=== PATIENT | female | born 1965 | race Two or more races ===

== ENCOUNTER 2016-10-28 09:29 | Inpatient (IN) | payer SELFPAY ==
[~2016-10-28] VITALS: Ht 149.9 cm; Wt 88.9 kg
[2016-10-28] VITALS (13 sets, daily range): BP systolic 107–150; BP diastolic 62–82
[2016-10-28] MEDS ORDERED: HEPARIN for IV BOLUS 10,000 UNIT/10 ML VIAL. IV ONE (09:45)
[2016-10-28] MEDS ORDERED: NITROGLYCERIN SUBLINGUAL 0.4 MG BOTTLE OF 25. SL PRN ×2 (09:45→11:15)
[2016-10-28] MEDS ORDERED: ASPIRIN CHEWABLE 81 MG TABLET. PO ONE (09:45)
[2016-10-28] MEDS ORDERED: ASPIRIN 325 MG TABLET ONE (09:55)
[2016-10-28 09:57] LABS: BASO % 0 % (0-3); EOS % 1 % (0-3); LYMPH # 2.6 x10^3/uL (1.0-4.8); LYMPH % 30 % (24-48); MEAN CORPUSCULAR HEMOGLOBIN 29 pg (25-35); MEAN CORPUSCULAR HGB CONC 34 g/dL (31-37); MEAN CORPUSCULAR VOLUME 86 fL (79-100); MONO % 5 % (0-9); NEUT % 63 % (31-73); PLATELET COUNT 260 x10^3/uL (140-400); RED BLOOD COUNT 5.47 x10^6/uL (3.50-5.40); RED CELL DISTRIBUTION WIDTH 13.8 % (11.5-14.5); WHITE BLOOD COUNT 8.5 x10^3/uL (4.0-11.0)
[2016-10-28] MEDS ORDERED: MIDAZOLAM HCL/PF 2 MG/2 ML VIAL. ONE (10:03)
[2016-10-28] MEDS ORDERED: ONDANSETRON PF 4 MG/2 ML VIAL. ONE ×2 (10:03→10:31)
[2016-10-28] MEDS ORDERED: FENTANYL PF 100 MCG/2 ML VIAL. ONE (10:03)
--- NOTE | 2016-10-28 10:07 | EKG ---
[facility] [address] [place] [address] Test Date: 2016-10-28 Test Time: 09:40:53 Pat Name: ITA BUSTAMANTE Department: Room: Gender: F Founder And Chief Executive Officer: : 1965 Requested By: KOLTON DICK Order Number: [id number] Reading MD: Isabella Jo Measurements Intervals [place] Rate: 84 P: 35 WA: 156 QRS: -13 QRSD: 86 T: -10 QT: 380 QTc: 452 Interpretive Statements SINUS RHYTHM LEFTWARD AXIS ST & T ABNORMALITY, CONSIDER INFERIOR ISCHEMIA OR LEFT VENTRICULAR STRAIN ABNORMAL ECG RI6.01 No previous ECG available for comparison Electronically Signed On 11-02-2016 12:54:28 CDT by Isabella Jo
--- NOTE | 2016-10-28 10:10 | PHYS DOC ---
Past Medical History Past Medical History: Anxiety Past Surgical History: No Surgical History Alcohol Use: None Drug Use: None Adult General Chief Complaint Chief Complaint: chest pressure HPI HPI 51-year-old female presenting to the emergency department today with chest pain this started around 8:00 this morning. She describes it as a pressure sensation that is nonradiating associated with nausea and lightheadedness feeling weak. She reports a history of having a cardiac catheterization at [facility] reportedly "normal". She denies any stents history. He does have a history of anxiety. She denies unilateral leg swelling hemoptysis personal or family history of blood clotting disorders or recent immobilization. Review of systems is negative for abdominal pain fevers chills. Positive for nausea and generalized weakness. All other review of systems is negative unless otherwise noted in history of present illness. Review of Systems Review of Systems SEE ABOVE. Current Medications Current Medications Current Medications Medications (Trade) Dose Ordered Sig/Timoteo Start Time Stop Time Status Last Admin Dose Admin Albuterol Sulfate (Ventolin Neb Soln) 10 mg 1X ONCE 10/28/16 10:15 10/28/16 10:16 UNV Aspirin ([place] Aspirin) 325 mg STK-MED ONCE 10/28/16 09:55 10/28/16 09:56 DC Aspirin (Children'S Aspirin) 324 mg 1X ONCE 10/28/16 09:45 10/28/16 09:46 UNV Calcium Gluconate (Calcium Gluconate) 1,000 mg 1X ONCE 10/28/16 10:15 10/28/16 10:16 UNV Dextrose (Dextrose 50%-Water Syringe) 25 gm 1X ONCE 10/28/16 10:15 10/28/16 10:16 UNV Fentanyl Citrate 100 mcg 100 mcg STK-MED ONCE 10/28/16 10:03 10/28/16 10:04 DC Heparin Sodium (Porcine) (Heparin Sodium) 4,000 unit 1X ONCE 10/28/16 09:45 10/28/16 09:46 UNV Heparin Sodium/ Sodium Chloride 500 ml @ As Directed STK-MED ONCE 10/28/16 10:10 10/28/16 10:11 DC Insulin Human Regular (Novolin R Vial) 10 unit 1X ONCE 10/28/16 10:15 10/28/16 10:16 UNV Midazolam HCl (Versed) 2 mg STK-MED ONCE 10/28/16 10:03 10/28/16 10:04 DC Nitroglycerin (Nitrostat) 0.4 mg PRN Q5MIN PRN 10/28/16 09:45 10/29/16 09:44 UNV Ondansetron HCl (Zofran) 4 mg STK-MED ONCE 10/28/16 10:03 10/28/16 10:04 DC Sodium Bicarbonate 50 meq 1X ONCE 10/28/16 10:15 10/28/16 10:16 UNV Physical Exam Physical Exam Constitutional: Well developed, well nourished, patient appears to be in moderate discomfort. HENT: Normocephalic, atraumatic, bilateral external ears normal, oropharynx moist, no oral exudates, nose normal. [] Eyes: PERRLA, EOMI, conjunctiva normal, no discharge. [] Neck: Normal range of motion, no tenderness, supple, no stridor. Cardiovascular:Heart rate regular rhythm, no murmur [] Lungs & Thorax: Bilateral breath sounds clear to auscultation Abdomen: Bowel sounds normal, soft, no tenderness, no masses, no pulsatile masses. [] Skin: Warm, dry, no erythema, no rash. [] Back: No tenderness, no CVA tenderness. Extremities: No tenderness, no cyanosis, no clubbing, ROM intact, no edema. [] Neurologic: Alert and oriented X 3, normal motor function, normal sensory function, no focal deficits noted. [] Psychologic: Affect normal, judgement normal, mood normal. [] Current Patient Data Vital Signs Vital Signs Date Time Temp Pulse Resp B/P Pulse Ox O2 Delivery O2 Flow Rate FiO2 10/28/16 09:49 97.6 89 21 195/105 97 Room Air 97.6 Lab Values Laboratory Tests Test 10/28/16 09:45 White Blood Count 8.5x10^3/uL (4.0-11.0) Red Blood Count 5.47x10^6/uL (3.50-5.40) H Hemoglobin 16.0g/dL (12.0-15.5) H Hematocrit 47.0% (36.0-47.0) Mean Corpuscular Volume 86fL (79-100) Mean Corpuscular Hemoglobin 29pg (25-35) Mean Corpuscular Hemoglobin Concent 34g/dL (31-37) Red Cell Distribution Width 13.8% (11.5-14.5) Platelet Count 260x10^3/uL (140-400) Neutrophils (%) (Auto) 63% (31-73) Lymphocytes (%) (Auto) 30% (24-48) Monocytes (%) (Auto) 5% (0-9) Eosinophils (%) (Auto) 1% (0-3) Basophils (%) (Auto) 0% (0-3) Neutrophils # (Auto) 5.4x10^3uL (1.8-7.7) Lymphocytes # (Auto) 2.6x10^3/uL (1.0-4.8) Monocytes # (Auto) 0.4x10^3/uL (0.0-1.1) Eosinophils # (Auto) 0.1x10^3/uL (0.0-0.7) Basophils # (Auto) 0.0x10^3/uL (0.0-0.2) Sodium Level 138mmol/L (136-145) Potassium Level 3.9mmol/L (3.5-5.1) Chloride Level 101mmol/L (98-107) Carbon Dioxide Level 24mmol/L (21-32) Anion Gap 13 (6-14) Blood Urea Nitrogen 8mg/dL (7-20) Creatinine 0.7mg/dL (0.6-1.0) Estimated GFR (Cockcroft-Gault) 88.6 Glucose Level 143mg/dL (70-99) H Calcium Level 9.1mg/dL (8.5-10.1) POC Troponin I 0.04ng/ml (<0.08) Laboratory Tests 10/28/16 09:45 Laboratory Tests 10/28/16 09:45 EKG EKG [] EKG shows a sinus rhythm with a regular rate. [place] is mildly leftward. ST segments show ST elevation in lead [address] depression in lead 3 and aVF. This meet STEMI criteria and a code STEMI was called at 0941. Radiology/Procedures Radiology/Procedures [] Course & Med Decision Making Course & Med Decision Making Pertinent Labs and Imaging studies reviewed. (See chart for details) [] 51-year-old female presenting to the emergency department today with chest pressure that started around 8:00 this morning. Initial EKG along with clinical presentation meet STEMI criteria. Code STEMI called at 0941. I discussed the case with Dr. Carreno who agreed and proceeded with cardiac catheterization. Aspirin and heparin given in the emergency department. blood work obtained. After the patient went for cardiac catheterization, I received the patient's i- STAT chemistry panel which showed hyperkalemia at greater than 9. We called the cardiac catheterization lab and informed Dr. Carreno. I ordered hyperkalemia treatment from the emergency department and discussed the case with Dr. You who accepted the patient for admission. Dragon Disclaimer Dragon Disclaimer This electronic medical record was generated, in whole or in part, using a voice recognition dictation system. Departure Departure Impression: Primary Impression: STEMI (ST elevation myocardial infarction) Additional Impressions: Chest pressure Hyperkalemia Disposition: ADMITTED INPATIENT Admitting Physician: Salima You Condition: CRITICAL Problem Qualifiers Primary Impression: STEMI (ST elevation myocardial infarction) Involved coronary artery: unspecified coronary artery Qualified Code: I21.3 - ST elevation (STEMI) myocardial infarction of unspecified site KOLTON DICK MD Oct 28, 2016 10:10
[2016-10-28 10:14] LABS: CALCIUM 9.1 mg/dL (8.5-10.1); CREATININE 0.7 mg/dL (0.6-1.0); GFR 88.6; POTASSIUM 3.9 mmol/L (3.5-5.1)
[2016-10-28] MEDS ORDERED: DEXTROSE 50% 25 GM / 50ML DISP.SYRIN. IV ONE (10:15)
[2016-10-28] MEDS ORDERED: CALCIUM GLUCONATE 1,000 MG/10 ML VIAL. IVP ONE (10:15)
[2016-10-28] MEDS ORDERED: INSULIN REGULAR 100 UNIT/ML 10ML VIAL. IV ONE (10:15)
[2016-10-28] MEDS ORDERED: SODIUM BICARB ADULT 8.4% 50 MEQ/50 ML DISP.SYRIN. IV ONE (10:15)
[2016-10-28] MEDS ORDERED: ALBUTEROL SULFATE 2.5 MG/3 ML NEBU. CONT NEB ONE (10:15)
--- NOTE | 2016-10-28 10:19 | ACF ---
Admission Forms Criteria MYOCARDIAL INFARCTION Clinical Indications for Admission to Inpatient Care (Place 'X' for any and all applicable criteria): Admission is indicated for 1 or more of the following (1)(2)(3)(4): [X]I. Acute VT [ ]II. Contraindications and/or Inappropriate clinical situations for Observational Care in patients with Myocardial Infarction, when ANY ONE of the following is required: [ ]a) Patient with High risk of cardiac embolism (e.g, patients with previous cardiac embolism, LVEF < 40%, age >75 and patients with prosthetic valve) 18 [ ]b) Patient with Moderate risk including DM patient, CAD and patient aged 65-75 18 [ ]c) Patient with any change in cardiac biomarker especially troponin should be managed as high risk in an inpatient setting 19 [ ]d) Physician judgement irrespective of ECG and other diagnostic findings 20 [ ]III.General contraindications and/or Inappropriate clinical situations for Observational Care in patients with Myocardial Infarction, when ANY ONE of the following is required: [ ]a) Prediction of prolongation of LOS based on ANY ONE of the following may be considered as a contraindication for observational care 2, 3, 4, 5, 6, 7, 8, 9, 10, 11 [ ]i) Age > 65 yrs. [ ]ii) Patient arriving by ambulance [ ]iii) Patient with high acuity [ ]iv) Patient requiring vital sign monitoring [ ]v) Patient on IV medication [ ]b) Systolic blood pressures greater than or equal to 180mmHg 3,12 [ ]c) Patient with altered mental status including delirium and other alteration of consciousness, (3) [ ]d) Patient whose discharge disposition will be to a alf home or rehabilitation home should not be managed in Emergency Department Observation Unit. CMS rule requires 3 days hospital stay before such placement. 3,13 [ ]e) Patient with failure to thrive due to broad array of etiologies 3 ,16,17 [ ]f) Inability to ambulate 3,14 Extended stay beyond goal length of stay may be needed for (1)(18)(20)(24)(25): [ ]a) Hemodynamic instability, persisting symptoms after intensive medical management, or recurring severe, prolonged symptoms [ ]b) Intravascular procedural complications such as acute vessel closure, stent thrombosis, stent malposition, or vessel dissection (26)(27)(28) [ ]c) Extravascular procedural complications such as retroperitoneal hematoma , pericardial effusion, or cardiac tamponade [ ]d) Entry site complications causing bleeding, hematoma or distal ischemia and requiring ongoing monitoring, surgical repair or surgical thrombectomy. Dangerous arrhythmia [ ]e) Complicated percutaneous coronary intervention (e.g., unsuccessful percutaneous coronary intervention or percutaneous coronary intervention of non- apache vessel) [ ]f) Urgent or emergent surgery for complications of VT (e.g., ventricular rupture, valvular insufficiency) [ ]g) Surgical revascularization via coronary artery bypass graft [ ]h) Heart failure (e.g., pulmonary edema) [ ]i) Unstable pulmonary comorbidities, including COPD or pneumonia (31) [ ]j) Acute renal failure The original [employer] content created by [employer] has been revised. The portions of the content which have been revised are identified through the use of italic text or in bold, and [facility] has neither reviewed nor approved the modified material. All other unmodified content is copyright [facility] Please see references footnoted in the original [facility] [facility] edition 2016 Admission Criteria Met?: Yes BUSTER EASLEY Oct 28, 2016 10:19
[2016-10-28 10:33] LABS: CALCIUM 8.7 mg/dL (8.5-10.1); CREATININE 0.7 mg/dL (0.6-1.0); GFR 88.6; POTASSIUM 3.2 mmol/L (3.5-5.1)
[2016-10-28] MEDS ORDERED: NITROGLYCERIN PREMIX 250 ML IV ONE (10:37)
[2016-10-28] MEDS ORDERED: IOHEXOL 300 MG/ML 100ML VIAL. IART ONE (10:45)
[2016-10-28] MEDS ORDERED: LIDOCAINE 2% 20 ML VIAL. IJ ONE (10:45)
[2016-10-28] MEDS ORDERED: ONDANSETRON PF 4 MG/2 ML VIAL. IV ONE (11:00)
--- NOTE | 2016-10-28 11:06 | PDOC4 ---
Operative Note Operative Note Brief cath note. 51 year old female with acute onset of chest pain this morning. EKG with mild ST and T wave changes not diagnostic of a STEMI but concerning in the setting of severe chest pain. Heart cath recommended. Risks and benefits discussed and patient agreed to cath. Recheck showed a normal K level. LV 172/24, Ao. 170/90. No significant CAD. Normal LV gram. Normal Ao root and arch. Continue medical treatment and work up for non cardiac causes of her pain. Discussed with the patient and her family. Full report to follow. BAILEE DEL VALLE MD Oct 28, 2016 11:06
[2016-10-28] MEDS ORDERED: 0.9 % SODIUM CHLORIDE 10 ML DISP.SYRIN. IV PRN (11:15)
[2016-10-28] MEDS ORDERED: ONDANSETRON PF 4 MG/2 ML VIAL. IV PRN (11:45)
[2016-10-28] MEDS ORDERED: PHEN37.53 PO (11:50)
[2016-10-28] MEDS ORDERED: INDO50CA PO (11:50)
[2016-10-28] MEDS ORDERED: IOHEXOL 300 MG/ML 100ML VIAL. ONE (11:57)
[2016-10-28] MEDS ORDERED: LIDOCAINE 2% 20 ML VIAL. ONE (11:57)
[2016-10-28] MEDS ORDERED: ACETAMINOPHEN 325 MG TABLET. PO PRN (13:00)
[2016-10-28] MEDS ORDERED: ACETAMINOPHEN 500 MG TABLET PO ONE (13:00)
[2016-10-28] MEDS: IV NORMAL SALINE 1000ML BAG 1,000 ML IV SCH (13:11)
[2016-10-28] MEDS ORDERED: ACETAMINOPHEN 500 MG TABLET PO PRN (14:15)
--- NOTE | 2016-10-28 15:08 | PDOC1 ---
History and Physical Date of Admission Date of Admission DATE: 10/28/16 TIME: 15:03 Identification/Chief Complaint Chief Complaint chest pain Problems: Source Source: Caregiver, Chart review, Patient History of Present Illness History of Present Illness 51 y.o F with no real significant past medical, admitted for CP. She was standing at work, felt dizzy, lightheaded, diaphoretic and fell on the floor but did not LOC. NO SZ like activity, no incontinence. EMS called, STEMI was called at ER, underwent cardiac cath which was clean Never had similar sxs before nor prior cardiac caths NOn smoker, occasional drinker DOes not do drugs FAm hx essentially non significant Admits to some anxiety, has xanax at home but claims she was not anxious when this all happened She would like to go home yareli R groin site inspected - no hematoma Past Medical History Psych: Anxiety Past Surgical History Past Surgical History: No pertinent history Family History Family History: No Significant Social History Smoke: No ALCOHOL: occassional Drugs: None Current Problem List Problem List Problems Medical Problems: (1) Chest pressure Status: Acute (2) Hyperkalemia Status: Acute (3) Hyperkalemia Status: Acute (4) STEMI (ST elevation myocardial infarction) Status: Acute (5) STEMI (ST elevation myocardial infarction) Status: Acute Problems: Current Medications Current Medications Current Medications Aspirin (Children'S Aspirin) 324 mg 1X ONCE PO ; Start 10/28/16 at 09:45; Stop 10/28/16 at 10:32; Status DC Nitroglycerin (Nitrostat) 0.4 mg PRN Q5MIN PRN SL CP RATING > 1/10; Start 10/28 at 09:45; Stop 10/29/16 at 09:44 Heparin Sodium (Porcine) (Heparin Sodium) 4,000 unit 1X ONCE IV ; Start at 09:45; Stop 10/28/16 at 10:33; Status DC Aspirin ([place] Aspirin) 325 mg STK-MED ONCE .ROUTE ; Start 10/28/16 at 09:55; Stop 10/28/16 at 09:56; Status DC Ondansetron HCl (Zofran) 4 mg STK-MED ONCE .ROUTE ; Start 10/28/16 at 10:03; Stop 10/28/16 at 10:04; Status DC Midazolam HCl (Versed) 2 mg STK-MED ONCE .ROUTE ; Start 10/28/16 at 10:03; Stop 10/28/16 at 10:04; Status DC Fentanyl Citrate 100 mcg 100 mcg STK-MED ONCE .ROUTE ; Start 10/28/16 at 10:03; Stop 10/28/16 at 10:04; Status DC Heparin Sodium/ Sodium Chloride 500 ml @ As Directed STK-MED ONCE .ROUTE ; Start 10/28/16 at 10:10; Stop 10/28/16 at 10:11; Status DC Sodium Bicarbonate 50 meq 1X ONCE IV ; Start 10/28/16 at 10:15; Stop 10/28/16 at 10:32; Status DC Calcium Gluconate (Calcium Gluconate) 1,000 mg 1X ONCE IVP ; Start 10/28/16 at 10:15; Stop 10/28/16 at 10:32; Status DC Albuterol Sulfate (Ventolin Neb Soln) 10 mg 1X ONCE CONT NEB ; Start 10/28/16 at 10:15; Stop 10/28/16 at 10:32; Status DC Insulin Human Regular (Novolin R Vial) 10 unit 1X ONCE IV ; Start 10/28/16 at 10:15; Stop 10/28/16 at 10:32; Status DC Dextrose (Dextrose 50%-Water Syringe) 25 gm 1X ONCE IV ; Start 10/28/16 at 10: 15; Stop 10/28/16 at 10:32; Status DC Ondansetron HCl (Zofran) 4 mg STK-MED ONCE .ROUTE ; Start 10/28/16 at 10:31; Stop 10/28/16 at 10:32; Status DC Heparin Sodium/ Sodium Chloride 1,000 unit 1X ONCE IART Last administered on t 10:58; Start 10/28/16 at 10:45; Stop 10/28/16 at 10:46; Status DC Heparin Sodium/ Sodium Chloride 1,000 unit 1X ONCE IART Last administered on t 10:58; Start 10/28/16 at 10:45; Stop 10/28/16 at 10:46; Status DC Iohexol (Omnipaque 300 Mg/ml) 100 ml 1X ONCE IART Last administered on t 10:56; Start 10/28/16 at 10:45; Stop 10/28/16 at 10:46; Status DC Lidocaine HCl 20 ml 20 ml 1X ONCE IJ Last administered on 10/28/16 10:58; Start 10/28/16 at 10:45; Stop 10/28/16 at 10:46; Status DC Nitroglycerin/ Dextrose (Nitroglycerin Drip) 250 ml @ As Directed STK-MED ONCE IV ; Start 10/28/16 at 10:37; Stop 10/28/16 at 10:38; Status DC Ondansetron HCl (Zofran) 4 mg 1X ONCE IV Last administered on 10/28/16 10:57 ; Start 10/28/16 at 11:00; Stop 10/28/16 at 11:01; Status DC Sodium Chloride 3 ml 3 ml QSHIFT PRN IV AFTER MEDS AND BLOOD DRAWS; Start 10/28 at 11:15 Sodium Chloride (Iv Sodium Chloride 0.9% 1000ml Bag) 1,000 ml @ 60 mls/hr [id number] IV Last administered on 10/28/16 13:11; Start 10/28/16 at 11:06 Nitroglycerin (Nitrostat) 0.4 mg PRN Q5MIN PRN SL CHEST PAIN; Start 10/28/16 at 11:15 Ondansetron HCl (Zofran) 4 mg PRN Q6HRS PRN IV NAUSEA/VOMITING Last administered on 10/28/16 12:58; Start 10/28/16 at 11:45 Lidocaine HCl 20 ml 20 ml STK-MED ONCE .ROUTE ; Start 10/28/16 at 11:57; Stop at 11:58; Status DC Heparin Sodium/ Sodium Chloride 1,000 ml @ As Directed STK-MED ONCE .ROUTE ; Start 10/28/16 at 11:57; Stop 10/28/16 at 11:58; Status DC Iohexol (Omnipaque 300 Mg/ml) 100 ml STK-MED ONCE .ROUTE ; Start 10/28/16 at 11: 57; Stop 10/28/16 at 11:58; Status DC Acetaminophen (Tylenol) 1,000 mg 1X ONCE PO Last administered on 10/28/16 13: 10; Start 10/28/16 at 13:00; Stop 10/28/16 at 13:02; Status DC Acetaminophen (Tylenol) 650 mg PRN Q6HRS PRN PO HEADACHE; Start 10/28/16 at 13: 00 Acetaminophen (Tylenol) 500 mg PRN Q6HRS PRN PO MILD PAIN / TEMP; Start at 14:15 Active Scripts Active Reported Phentermine Hcl 37.5 Mg Capsule 1 Cap PO [id number] Indomethacin 50 Mg Capsule 1 Cap PO TID Allergies Allergies: Coded Allergies: No Known Drug Allergies (Unverified , 10/28/16) ROS General: No: Appetite, Chills, Fatigue, Malaise, Night Sweats, Other PSYCHOLOGICAL ROS: No: Anxiety, Behavioral Disorder, Concentration difficultie , Decreased libido, Depression, Disorientation, Hallucinations, Hostility, Irritablity, Memory difficulties, Mood Swings, Obsessive thoughts, Other, Physical abuse, Sexual abuse, Sleep disturbances, Suicidal ideation Eyes: No Blurry vision, No Decreased vision, No Double vision, No Dry eyes, No Excessive tearing, No Eye Pain, No Itchy Eyes, No Loss of vision, No Other, No Photophobia, No Scotomata, No Uses contacts, No Uses glasses HEENT: No: Epistaxis, Heacaches, Hearing change, Nasal congestion, Nasal discharge, Oral lesions, Other, Sinus pain, Sneezing, Snoring, Sore Throat, Tinnitus, Vertigo, Visual Changes, Vocal changes ALLERGY AND IMMUNOLOGY: No: Hives, Insect Bite Sensitivity, Itchy/Watery Eyes, Nasal Congestion, Other, Post Nasal Drip, Seasonal Allergies Hematological and Lymphatic: No: Bleeding Problems, Blood Clots, Blood Transfusions, Brusing, Night Sweats, Other, Pallor, Swollen Lymph Nodes ENDOCRINE: No: Breast Changes, Galactorrhea, Hair Pattern Changes, Hot Flashes , Malaise/lethargy, Mood Swings, Other, Palpitations, Polydipsia/polyuria, Skin Changes, Temperature Intolerance, Unexpected Weight Changes Breast: No New/Changing Breast Lumps, No Nipple changes, No Nipple discharge, No Other Respiratory: No: Cough, Hemoptysis, Orthopnea, Other, Pleuritic Pain, SOB with excertion, Shortness of breath, Sputum Changes, Stridor, Tachypnea, Wheezing Cardiovascular: No Chest Pain, No Edema, No Lt Headedness, No Orthopnea, No Other, No Palpitations, No Paroxysmal Noc. Dyspnea Gastrointestinal: No Abdominal Pain, No Constipation, No Diarrhea, No Hematochezia, No Melena, No Nausea, No Other, No Vomiting Genitourinary: No , No , No , No , No , No , No , No Discharge, No Dysuria, No Flank Pain, No Frequency, No Hematuria, No Incontinence, No Other, No Pain, No Retention, No Urgency Musculoskeletal: No Gait Disturbance, No Joint Pain, No Joint Stiffness, No Joint Swelling, No Muscle Pain, No Muscular Weakness, No Other, No Pain In:, No Swelling In: Neurological: No Behavorial Changes, No Bowel/Bladder ControlChng, No Confusion , No Dizziness, No Gait Disturbance, No Headaches, No Impaired Coord/balance, No Memory Loss, No Numbness/Tingling, No Other, No Seizures, No Speech Problems , No Tremors, No Visual Changes, No Weakness Skin: No Acne, No Dry Skin, No Eczema, No Hair Changes, No Lumps, No Mole Changes, No Mottling, No Nail Changes, No Other, No Pruritus, No Rash, No Skin Lesion Changes Physical Exam General: Alert, Oriented X3, Cooperative, No acute distress HEENT: Atraumatic, PERRLA, EOMI Lungs: Clear to auscultation, Normal air movement Heart: S1S2, RRR, no rubs, no gallops Cardiovascular: S1, S2 Breasts: Normal Abdomen: Normal bowel sounds, Soft, No tenderness, No hepatosplenomegaly, No masses Extremities: No clubbing, No cyanosis, No edema, Normal pulses, No tenderness/ swelling Skin: No rashes, No breakdown, No significant lesion Neuro: Normal gait, Normal speech, Strength at 5/5 X4 ext, Normal tone, Sensation intact, Cranial nerves 3-12 NL, Reflexes 2+ Psych/Mental Status: Mental status NL, Mood NL Vitals Vitals Vital Signs Date Time Temp Pulse Resp B/P Pulse Ox O2 Delivery O2 Flow Rate FiO2 10/28/16 14:39 78 18 107/71 96 Room Air 10/28/16 11:30 97.6 97.6 Labs Labs Laboratory Tests Test 10/28/16 09:45 10/28/16 10:22 White Blood Count 8.5x10^3/uL (4.0-11.0) Red Blood Count 5.47x10^6/uL (3.50-5.40) Hemoglobin 16.0g/dL (12.0-15.5) Hematocrit 47.0% (36.0-47.0) Mean Corpuscular Volume 86fL (79-100) Mean Corpuscular Hemoglobin 29pg (25-35) Mean Corpuscular Hemoglobin Concent 34g/dL (31-37) Red Cell Distribution Width 13.8% (11.5-14.5) Platelet Count 260x10^3/uL (140-400) Neutrophils (%) (Auto) 63% (31-73) Lymphocytes (%) (Auto) 30% (24-48) Monocytes (%) (Auto) 5% (0-9) Eosinophils (%) (Auto) 1% (0-3) Basophils (%) (Auto) 0% (0-3) Neutrophils # (Auto) 5.4x10^3uL (1.8-7.7) Lymphocytes # (Auto) 2.6x10^3/uL (1.0-4.8) Monocytes # (Auto) 0.4x10^3/uL (0.0-1.1) Eosinophils # (Auto) 0.1x10^3/uL (0.0-0.7) Basophils # (Auto) 0.0x10^3/uL (0.0-0.2) Sodium Level 138mmol/L (136-145) 139mmol/L (136-145) Potassium Level 3.9mmol/L (3.5-5.1) 3.2mmol/L (3.5-5.1) Chloride Level 101mmol/L (98-107) 101mmol/L (98-107) Carbon Dioxide Level 24mmol/L (21-32) 26mmol/L (21-32) Anion Gap 13 (6-14) 12 (6-14) Blood Urea Nitrogen 8mg/dL (7-20) 8mg/dL (7-20) Creatinine 0.7mg/dL (0.6-1.0) 0.7mg/dL (0.6-1.0) Estimated GFR (Cockcroft-Gault) 88.6 88.6 Glucose Level 143mg/dL (70-99) 133mg/dL (70-99) Calcium Level 9.1mg/dL (8.5-10.1) 8.7mg/dL (8.5-10.1) Bedside Troponin I 0.04ng/ml (<0.08) Troponin I Quantitative < 0.017ng/mL (0.000-0.055) Laboratory Tests Test 10/28/16 09:45 10/28/16 10:22 White Blood Count 8.5x10^3/uL (4.0-11.0) Red Blood Count 5.47x10^6/uL (3.50-5.40) Hemoglobin 16.0g/dL (12.0-15.5) Hematocrit 47.0% (36.0-47.0) Mean Corpuscular Volume 86fL (79-100) Mean Corpuscular Hemoglobin 29pg (25-35) Mean Corpuscular Hemoglobin Concent 34g/dL (31-37) Red Cell Distribution Width 13.8% (11.5-14.5) Platelet Count 260x10^3/uL (140-400) Neutrophils (%) (Auto) 63% (31-73) Lymphocytes (%) (Auto) 30% (24-48) Monocytes (%) (Auto) 5% (0-9) Eosinophils (%) (Auto) 1% (0-3) Basophils (%) (Auto) 0% (0-3) Neutrophils # (Auto) 5.4x10^3uL (1.8-7.7) Lymphocytes # (Auto) 2.6x10^3/uL (1.0-4.8) Monocytes # (Auto) 0.4x10^3/uL (0.0-1.1) Eosinophils # (Auto) 0.1x10^3/uL (0.0-0.7) Basophils # (Auto) 0.0x10^3/uL (0.0-0.2) Sodium Level 138mmol/L (136-145) 139mmol/L (136-145) Potassium Level 3.9mmol/L (3.5-5.1) 3.2mmol/L (3.5-5.1) Chloride Level 101mmol/L (98-107) 101mmol/L (98-107) Carbon Dioxide Level 24mmol/L (21-32) 26mmol/L (21-32) Anion Gap 13 (6-14) 12 (6-14) Blood Urea Nitrogen 8mg/dL (7-20) 8mg/dL (7-20) Creatinine 0.7mg/dL (0.6-1.0) 0.7mg/dL (0.6-1.0) Estimated GFR (Cockcroft-Gault) 88.6 88.6 Glucose Level 143mg/dL (70-99) 133mg/dL (70-99) Calcium Level 9.1mg/dL (8.5-10.1) 8.7mg/dL (8.5-10.1) Bedside Troponin I 0.04ng/ml (<0.08) Troponin I Quantitative < 0.017ng/mL (0.000-0.055) VTE Prophylaxis Ordered VTE Prophylaxis Devices: Yes VTE Pharmacological Prophylaxi: Yes Assessment/Plan Assessment/Plan 1. CHest pain, non cardiac - clean cath - 2. Possible anxiety 3. Obesity PLAN: Admit OBS resume xanax Awaiting home meds HOme TAYE Figueroa MD Oct 28, 2016 15:08
[2016-10-28] MEDS ORDERED: ALPRAZOLAM 0.25 MG TABLET. PO PRN (15:15)
--- NOTE | 2016-10-28 15:17 | CARD ---
APPROVED REPORT Procedures. Left heart catheterization. Selective coronary angiogram Left ventriculogram. Aortic root injection. The patient is a 51-year-old female who was admitted through the emergency room with acute onset of s evere chest pain. Patient's EKG showed mild ST segment changes in the inferior and lateral leads. Alt elda she did not meet the criteria for ST elevated myocardial infarction, in the setting of her abn ormal EKG and severe chest pain a cardiac catheterization was recommended. Risks and benefits were di scussed with the patient. She has consented to a catheterization and possible intervention. After informed consent was obtained the patient was brought to the heart catheterization lab. The are a of the right femoral artery was per the usual manner with Betadine, sterile draping and local anest hetic. An 18-gauge needle was used to enter the right femoral artery, a wire placed and a 6 Greek sh eath placed over the wire. A 6 Greek JL4 catheter was advanced the ascending aorta. It was then used to engage the left coronary system and sequential injections in various views were obtained. A 6 Ulisses nch Graham right catheter was advanced the ascending aorta. It was used to engage the right coronar y artery and sequential injections in various views were obtained. A pigtail catheter was advanced to the ascending aorta. It was then passed to the left ventricle. A 30 VASQUEZ left ventriculogram was per formed. Pullback pressures were measured. A 30 PANDA aortic root injection was performed. The catheter was removed from the patient. Injection of the sheath showed normal placement. The sheath was remove d and sealed with an Angio-Seal product. Findings. Hemodynamics. Left ventricular pressure 174/24, aortic root pressure of 170/90. Coronaries. Left main. The left main was a normal-sized vessel with no lesions. Left anterior descending. The LAD had a normal appearance of its proximal vessel. It began to taper i n its mid vessel and the distal vessel was a very small vessel. There are no isolated lesions present . Left circumflex. The left circumflex is a moderate size vessel. It had no lesions. Right coronary artery. The right coronary was a moderate size vessel. It had no lesions. Left ventriculogram. The left ventricle had an area of mild hypokinesis in the anterior wall. Ejection fraction was estima dionne at 46%. Aortic root. The aortic root appeared normal without enlargement. <Conclusion> Very small mid to distal LAD with no isolated lesions present. Possible component of vasospasm. Mild anterior wall hypokinesis with an ejection fraction estimated at 46%. No angiographic disease in the right coronary artery or left circumflex system.
--- NOTE | 2016-10-28 16:22 | PDOC2 ---
NEUROLOGY CONSULT Date of Admission Date of Admission DATE: 10/28/16 TIME: 16:20 Reason for Consult Reason for Consult: Visual disturbances Referring Physician Referring Physician: Dr. Gill PCP: Dr. Gonzalez Source Source: Chart review, Patient History of Present Illness History of Present Illness The patient is a 51-year-old right-handed female limited with chest pain and syncope who has had some visual disturbances this afternoon following cardiac catheterization. She routinely gets this every 3-4 months usually associate with a migraine headache, but not always. These are no different from her usual symptoms, she says. In general she takes Excedrin when she gets the headache and that takes care of it. There is no history of stroke, seizure, or head injury. Past Medical History Cardiovascular: HTN CENTRAL NERVOUS SYSTEM: Migraine GI: GERD Psych: Anxiety, Depression Musculoskeletal: Osteoarthritis Past Surgical History Past Surgical History: , Tonsillectomy, Hysterectomy Family History Family History: CAD Social History Social History No tobacco or alcohol Current Medications Current Medications Current Medications Aspirin (Children'S Aspirin) 324 mg 1X ONCE PO ; Start 10/28/16 at 09:45; Stop 10/28/16 at 10:32; Status DC Nitroglycerin (Nitrostat) 0.4 mg PRN Q5MIN PRN SL CP RATING > 1/10; Start 10/28 at 09:45; Stop 10/29/16 at 09:44 Heparin Sodium (Porcine) (Heparin Sodium) 4,000 unit 1X ONCE IV ; Start at 09:45; Stop 10/28/16 at 10:33; Status DC Aspirin ([place] Aspirin) 325 mg STK-MED ONCE .ROUTE ; Start 10/28/16 at 09:55; Stop 10/28/16 at 09:56; Status DC Ondansetron HCl (Zofran) 4 mg STK-MED ONCE .ROUTE ; Start 10/28/16 at 10:03; Stop 10/28/16 at 10:04; Status DC Midazolam HCl (Versed) 2 mg STK-MED ONCE .ROUTE ; Start 10/28/16 at 10:03; Stop 10/28/16 at 10:04; Status DC Fentanyl Citrate 100 mcg 100 mcg STK-MED ONCE .ROUTE ; Start 10/28/16 at 10:03; Stop 10/28/16 at 10:04; Status DC Heparin Sodium/ Sodium Chloride 500 ml @ As Directed STK-MED ONCE .ROUTE ; Start 10/28/16 at 10:10; Stop 10/28/16 at 10:11; Status DC Sodium Bicarbonate 50 meq 1X ONCE IV ; Start 10/28/16 at 10:15; Stop 10/28/16 at 10:32; Status DC Calcium Gluconate (Calcium Gluconate) 1,000 mg 1X ONCE IVP ; Start 10/28/16 at 10:15; Stop 10/28/16 at 10:32; Status DC Albuterol Sulfate (Ventolin Neb Soln) 10 mg 1X ONCE CONT NEB ; Start 10/28/16 at 10:15; Stop 10/28/16 at 10:32; Status DC Insulin Human Regular (Novolin R Vial) 10 unit 1X ONCE IV ; Start 10/28/16 at 10:15; Stop 10/28/16 at 10:32; Status DC Dextrose (Dextrose 50%-Water Syringe) 25 gm 1X ONCE IV ; Start 10/28/16 at 10: 15; Stop 10/28/16 at 10:32; Status DC Ondansetron HCl (Zofran) 4 mg STK-MED ONCE .ROUTE ; Start 10/28/16 at 10:31; Stop 10/28/16 at 10:32; Status DC Heparin Sodium/ Sodium Chloride 1,000 unit 1X ONCE IART Last administered on 10:58; Start 10/28/16 at 10:45; Stop 10/28/16 at 10:46; Status DC Heparin Sodium/ Sodium Chloride 1,000 unit 1X ONCE IART Last administered on 10:58; Start 10/28/16 at 10:45; Stop 10/28/16 at 10:46; Status DC Iohexol (Omnipaque 300 Mg/ml) 100 ml 1X ONCE IART Last administered on 10:56; Start 10/28/16 at 10:45; Stop 10/28/16 at 10:46; Status DC Lidocaine HCl 20 ml 20 ml 1X ONCE IJ Last administered on 10/28/16 10:58; Start 10/28/16 at 10:45; Stop 10/28/16 at 10:46; Status DC Nitroglycerin/ Dextrose (Nitroglycerin Drip) 250 ml @ As Directed STK-MED ONCE IV ; Start 10/28/16 at 10:37; Stop 10/28/16 at 10:38; Status DC Ondansetron HCl (Zofran) 4 mg 1X ONCE IV Last administered on 10/28/16 10:57 ; Start 10/28/16 at 11:00; Stop 10/28/16 at 11:01; Status DC Sodium Chloride 3 ml 3 ml QSHIFT PRN IV AFTER MEDS AND BLOOD DRAWS; Start 10/28 at 11:15 Sodium Chloride (Iv Sodium Chloride 0.9% 1000ml Bag) 1,000 ml @ 60 mls/hr [id number] IV Last administered on 10/28/16 13:11; Start 10/28/16 at 11:06 Nitroglycerin (Nitrostat) 0.4 mg PRN Q5MIN PRN SL CHEST PAIN; Start 10/28/16 at 11:15 Ondansetron HCl (Zofran) 4 mg PRN Q6HRS PRN IV NAUSEA/VOMITING Last administered on 10/28/16 12:58; Start 10/28/16 at 11:45 Lidocaine HCl 20 ml 20 ml STK-MED ONCE .ROUTE ; Start 10/28/16 at 11:57; Stop at 11:58; Status DC Heparin Sodium/ Sodium Chloride 1,000 ml @ As Directed STK-MED ONCE .ROUTE ; Start 10/28/16 at 11:57; Stop 10/28/16 at 11:58; Status DC Iohexol (Omnipaque 300 Mg/ml) 100 ml STK-MED ONCE .ROUTE ; Start 10/28/16 at 11: 57; Stop 10/28/16 at 11:58; Status DC Acetaminophen (Tylenol) 1,000 mg 1X ONCE PO Last administered on 10/28/16 13: 10; Start 10/28/16 at 13:00; Stop 10/28/16 at 13:02; Status DC Acetaminophen (Tylenol) 650 mg PRN Q6HRS PRN PO HEADACHE; Start 10/28/16 at 13: 00 Acetaminophen (Tylenol) 500 mg PRN Q6HRS PRN PO MILD PAIN / TEMP; Start at 14:15 Alprazolam (Xanax) 0.25 mg PRN Q8HRS PRN PO ANXIETY / AGITATION; Start at 15:15 Active Scripts Active Reported Phentermine Hcl 37.5 Mg Capsule 1 Cap PO DAILYWBKFT Indomethacin 50 Mg Capsule 1 Cap PO TID Allergies Allergies: Coded Allergies: No Known Drug Allergies (Unverified , 10/28/16) ROS Review of System Patient denies fevers, chills, weight loss, dyspnea, angina, abdominal pain, change in bowels, or dysuria. 14 point review of systems is negative. Physical Exam Physical Examination PHYSICAL EXAMINATION: Vital signs: see above. General appearance is normal and in no acute distress. HEENT: Normocephalic and nontraumatic. Eyes, nose, ears, and throat are unremarkable. Neck is supple. No lymphadenopathy. No bruits are heard over the carotid artery. No crepitus. NEUROLOGICAL EXAMINATION: Mental Status Examination: Alert. Oriented to time, place, and person.Answers questions and follows commends. Pupils are equal round and reactive to light and accommodation. Funduscopic exam: No papilledema. Extraocular movements are intact. Visual field exam shows no defect on the direct confrontation. No motor or sensory deficits on the facial exam. Uvula in the midline and the soft palate elevated symmetrically. No deviation of the tongue to any direction. Gross hearing is normal. Shoulder shrug normal. Muscle tone is normal. Muscle strength is 5. Deep tendon reflexes are 2+ all around. Plantar reflex is with flexion response bilaterally. Fzckej-zm-[id number] test performance is accurate. Alternative movements are accurate. Gait not tested. Sensory exam shows no deficits. No cerebellar signs are elicited. Vitals VITALS Vital Signs Date Time Temp Pulse Resp B/P Pulse Ox O2 Delivery O2 Flow Rate FiO2 10/28/16 15:06 78 20 112/62 96 Room Air 10/28/16 11:30 97.6 97.6 Labs Labs Laboratory Tests Test 10/28/16 09:45 10/28/16 10:22 White Blood Count 8.5x10^3/uL (4.0-11.0) Red Blood Count 5.47x10^6/uL (3.50-5.40) Hemoglobin 16.0g/dL (12.0-15.5) Hematocrit 47.0% (36.0-47.0) Mean Corpuscular Volume 86fL (79-100) Mean Corpuscular Hemoglobin 29pg (25-35) Mean Corpuscular Hemoglobin Concent 34g/dL (31-37) Red Cell Distribution Width 13.8% (11.5-14.5) Platelet Count 260x10^3/uL (140-400) Neutrophils (%) (Auto) 63% (31-73) Lymphocytes (%) (Auto) 30% (24-48) Monocytes (%) (Auto) 5% (0-9) Eosinophils (%) (Auto) 1% (0-3) Basophils (%) (Auto) 0% (0-3) Neutrophils # (Auto) 5.4x10^3uL (1.8-7.7) Lymphocytes # (Auto) 2.6x10^3/uL (1.0-4.8) Monocytes # (Auto) 0.4x10^3/uL (0.0-1.1) Eosinophils # (Auto) 0.1x10^3/uL (0.0-0.7) Basophils # (Auto) 0.0x10^3/uL (0.0-0.2) Sodium Level 138mmol/L (136-145) 139mmol/L (136-145) Potassium Level 3.9mmol/L (3.5-5.1) 3.2mmol/L (3.5-5.1) Chloride Level 101mmol/L (98-107) 101mmol/L (98-107) Carbon Dioxide Level 24mmol/L (21-32) 26mmol/L (21-32) Anion Gap 13 (6-14) 12 (6-14) Blood Urea Nitrogen 8mg/dL (7-20) 8mg/dL (7-20) Creatinine 0.7mg/dL (0.6-1.0) 0.7mg/dL (0.6-1.0) Estimated GFR (Cockcroft-Gault) 88.6 88.6 Glucose Level 143mg/dL (70-99) 133mg/dL (70-99) Calcium Level 9.1mg/dL (8.5-10.1) 8.7mg/dL (8.5-10.1) Bedside Troponin I 0.04ng/ml (<0.08) Troponin I Quantitative < 0.017ng/mL (0.000-0.055) Laboratory Tests Test 10/28/16 09:45 10/28/16 10:22 White Blood Count 8.5x10^3/uL (4.0-11.0) Red Blood Count 5.47x10^6/uL (3.50-5.40) Hemoglobin 16.0g/dL (12.0-15.5) Hematocrit 47.0% (36.0-47.0) Mean Corpuscular Volume 86fL (79-100) Mean Corpuscular Hemoglobin 29pg (25-35) Mean Corpuscular Hemoglobin Concent 34g/dL (31-37) Red Cell Distribution Width 13.8% (11.5-14.5) Platelet Count 260x10^3/uL (140-400) Neutrophils (%) (Auto) 63% (31-73) Lymphocytes (%) (Auto) 30% (24-48) Monocytes (%) (Auto) 5% (0-9) Eosinophils (%) (Auto) 1% (0-3) Basophils (%) (Auto) 0% (0-3) Neutrophils # (Auto) 5.4x10^3uL (1.8-7.7) Lymphocytes # (Auto) 2.6x10^3/uL (1.0-4.8) Monocytes # (Auto) 0.4x10^3/uL (0.0-1.1) Eosinophils # (Auto) 0.1x10^3/uL (0.0-0.7) Basophils # (Auto) 0.0x10^3/uL (0.0-0.2) Sodium Level 138mmol/L (136-145) 139mmol/L (136-145) Potassium Level 3.9mmol/L (3.5-5.1) 3.2mmol/L (3.5-5.1) Chloride Level 101mmol/L (98-107) 101mmol/L (98-107) Carbon Dioxide Level 24mmol/L (21-32) 26mmol/L (21-32) Anion Gap 13 (6-14) 12 (6-14) Blood Urea Nitrogen 8mg/dL (7-20) 8mg/dL (7-20) Creatinine 0.7mg/dL (0.6-1.0) 0.7mg/dL (0.6-1.0) Estimated GFR (Cockcroft-Gault) 88.6 88.6 Glucose Level 143mg/dL (70-99) 133mg/dL (70-99) Calcium Level 9.1mg/dL (8.5-10.1) 8.7mg/dL (8.5-10.1) Bedside Troponin I 0.04ng/ml (<0.08) Troponin I Quantitative < 0.017ng/mL (0.000-0.055) Assessment/Plan Assessment/Plan Impression: These are the typical migraine visual changes that the patient has, without evidence of any other process occurring. Recommendations: I canceled the head CT Excedrin when necessary Further investigations only if the patient has atypical features. Thank you for letting me help with the patient's care. KEIRA BARNARD MD Oct 28, 2016 16:22
--- NOTE | 2016-10-28 16:53 | PDOC2 ---
CONSULT Date of Consult Date of Consult DATE: 10/28/16 TIME: 16:46 Reason for Consult Reason for Consult: Chest pain Referring Physician Referring Physician: Dr. Melendrez Identification/Chief Complaint Chief Complaint Chest pain Source Source: Patient History of Present Illness Reason for Visit: Development of dizziness and severe chest discomfort earlier today. She was brought emergently to the emergency room. In the ER her pain continued. EKG did show some ST-T wave changes. Patient received nitroglycerin with no effect. EKG was not consistent with an ST elevated myocardial infarction but in the setting of her continued chest pain as well as EKG changes a cardiac catheterization has been recommended. She denies any history of coronary disease or hypertension. She reports a possible catheterization several years ago at [facility] but is not sure of the results. She denies any drug allergies. Past Medical History Cardiovascular: HTN CENTRAL NERVOUS SYSTEM: Migraine GI: GERD Psych: Anxiety, Depression Musculoskeletal: Osteoarthritis Past Surgical History Past Surgical History: , Tonsillectomy, Hysterectomy Family History Family History: No Significant Social History No ALCOHOL: occassional Drugs: None Current Problem List Problem List Problems Medical Problems: (1) Chest pressure Status: Acute (2) Hyperkalemia Status: Acute (3) Hyperkalemia Status: Acute (4) STEMI (ST elevation myocardial infarction) Status: Acute (5) STEMI (ST elevation myocardial infarction) Status: Acute Current Medications Current Medications Current Medications Aspirin (Children'S Aspirin) 324 mg 1X ONCE PO ; Start 10/28/16 at 09:45; Stop 10/28/16 at 10:32; Status DC Nitroglycerin (Nitrostat) 0.4 mg PRN Q5MIN PRN SL CP RATING > 1/10; Start 10/28 at 09:45; Stop 10/29/16 at 09:44 Heparin Sodium (Porcine) (Heparin Sodium) 4,000 unit 1X ONCE IV ; Start at 09:45; Stop 10/28/16 at 10:33; Status DC Aspirin ([place] Aspirin) 325 mg STK-MED ONCE .ROUTE ; Start 10/28/16 at 09:55; Stop 10/28/16 at 09:56; Status DC Ondansetron HCl (Zofran) 4 mg STK-MED ONCE .ROUTE ; Start 10/28/16 at 10:03; Stop 10/28/16 at 10:04; Status DC Midazolam HCl (Versed) 2 mg STK-MED ONCE .ROUTE ; Start 10/28/16 at 10:03; Stop 10/28/16 at 10:04; Status DC Fentanyl Citrate 100 mcg 100 mcg STK-MED ONCE .ROUTE ; Start 10/28/16 at 10:03; Stop 10/28/16 at 10:04; Status DC Heparin Sodium/ Sodium Chloride 500 ml @ As Directed STK-MED ONCE .ROUTE ; Start 10/28/16 at 10:10; Stop 10/28/16 at 10:11; Status DC Sodium Bicarbonate 50 meq 1X ONCE IV ; Start 10/28/16 at 10:15; Stop 10/28/16 at 10:32; Status DC Calcium Gluconate (Calcium Gluconate) 1,000 mg 1X ONCE IVP ; Start 10/28/16 at 10:15; Stop 10/28/16 at 10:32; Status DC Albuterol Sulfate (Ventolin Neb Soln) 10 mg 1X ONCE CONT NEB ; Start 10/28/16 at 10:15; Stop 10/28/16 at 10:32; Status DC Insulin Human Regular (Novolin R Vial) 10 unit 1X ONCE IV ; Start 10/28/16 at 10:15; Stop 10/28/16 at 10:32; Status DC Dextrose (Dextrose 50%-Water Syringe) 25 gm 1X ONCE IV ; Start 10/28/16 at 10: 15; Stop 10/28/16 at 10:32; Status DC Ondansetron HCl (Zofran) 4 mg STK-MED ONCE .ROUTE ; Start 10/28/16 at 10:31; Stop 10/28/16 at 10:32; Status DC Heparin Sodium/ Sodium Chloride 1,000 unit 1X ONCE IART Last administered on t 10:58; Start 10/28/16 at 10:45; Stop 10/28/16 at 10:46; Status DC Heparin Sodium/ Sodium Chloride 1,000 unit 1X ONCE IART Last administered on t 10:58; Start 10/28/16 at 10:45; Stop 10/28/16 at 10:46; Status DC Iohexol (Omnipaque 300 Mg/ml) 100 ml 1X ONCE IART Last administered on t 10:56; Start 10/28/16 at 10:45; Stop 10/28/16 at 10:46; Status DC Lidocaine HCl 20 ml 20 ml 1X ONCE IJ Last administered on 10/28/16 10:58; Start 10/28/16 at 10:45; Stop 10/28/16 at 10:46; Status DC Nitroglycerin/ Dextrose (Nitroglycerin Drip) 250 ml @ As Directed STK-MED ONCE IV ; Start 10/28/16 at 10:37; Stop 10/28/16 at 10:38; Status DC Ondansetron HCl (Zofran) 4 mg 1X ONCE IV Last administered on 10/28/16 10:57 ; Start 10/28/16 at 11:00; Stop 10/28/16 at 11:01; Status DC Sodium Chloride 3 ml 3 ml QSHIFT PRN IV AFTER MEDS AND BLOOD DRAWS; Start 10/28 at 11:15 Sodium Chloride (Iv Sodium Chloride 0.9% 1000ml Bag) 1,000 ml @ 60 mls/hr [id number] IV Last administered on 10/28/16 13:11; Start 10/28/16 at 11:06 Nitroglycerin (Nitrostat) 0.4 mg PRN Q5MIN PRN SL CHEST PAIN; Start 10/28/16 at 11:15 Ondansetron HCl (Zofran) 4 mg PRN Q6HRS PRN IV NAUSEA/VOMITING Last administered on 10/28/16 12:58; Start 10/28/16 at 11:45 Lidocaine HCl 20 ml 20 ml STK-MED ONCE .ROUTE ; Start 10/28/16 at 11:57; Stop at 11:58; Status DC Heparin Sodium/ Sodium Chloride 1,000 ml @ As Directed STK-MED ONCE .ROUTE ; Start 10/28/16 at 11:57; Stop 10/28/16 at 11:58; Status DC Iohexol (Omnipaque 300 Mg/ml) 100 ml STK-MED ONCE .ROUTE ; Start 10/28/16 at 11: 57; Stop 10/28/16 at 11:58; Status DC Acetaminophen (Tylenol) 1,000 mg 1X ONCE PO Last administered on 10/28/16 13: 10; Start 10/28/16 at 13:00; Stop 10/28/16 at 13:02; Status DC Acetaminophen (Tylenol) 650 mg PRN Q6HRS PRN PO HEADACHE; Start 10/28/16 at 13: 00 Acetaminophen (Tylenol) 500 mg PRN Q6HRS PRN PO MILD PAIN / TEMP; Start at 14:15 Alprazolam (Xanax) 0.25 mg PRN Q8HRS PRN PO ANXIETY / AGITATION; Start at 15:15 Acetaminophen/ Aspirin/Caffeine (Excedrin Migraine) 1 tab PRN Q6HRS PRN PO MIGRAINE HEADACHE; Start 10/28/16 at 16:30 Active Scripts Active Reported Phentermine Hcl 37.5 Mg Capsule 1 Cap PO DAILYWBKFT Indomethacin 50 Mg Capsule 1 Cap PO TID Allergies Allergies: Coded Allergies: No Known Drug Allergies (Unverified , 10/28/16) ROS Respiratory: YES: Shortness of breath Cardiovascular: yes Chest Pain, yes Lt Headedness Physical Exam General: moderate distress HEENT: Atraumatic Lungs: Clear to auscultation Heart: Regular rate Abdomen: Normal bowel sounds Extremities: No clubbing Vitals VITALS Vital Signs Date Time Temp Pulse Resp B/P Pulse Ox O2 Delivery O2 Flow Rate FiO2 10/28/16 15:06 78 20 112/62 96 Room Air 10/28/16 11:30 97.6 97.6 Labs Labs Laboratory Tests Test 10/28/16 09:45 10/28/16 10:22 White Blood Count 8.5x10^3/uL (4.0-11.0) Red Blood Count 5.47x10^6/uL (3.50-5.40) Hemoglobin 16.0g/dL (12.0-15.5) Hematocrit 47.0% (36.0-47.0) Mean Corpuscular Volume 86fL (79-100) Mean Corpuscular Hemoglobin 29pg (25-35) Mean Corpuscular Hemoglobin Concent 34g/dL (31-37) Red Cell Distribution Width 13.8% (11.5-14.5) Platelet Count 260x10^3/uL (140-400) Neutrophils (%) (Auto) 63% (31-73) Lymphocytes (%) (Auto) 30% (24-48) Monocytes (%) (Auto) 5% (0-9) Eosinophils (%) (Auto) 1% (0-3) Basophils (%) (Auto) 0% (0-3) Neutrophils # (Auto) 5.4x10^3uL (1.8-7.7) Lymphocytes # (Auto) 2.6x10^3/uL (1.0-4.8) Monocytes # (Auto) 0.4x10^3/uL (0.0-1.1) Eosinophils # (Auto) 0.1x10^3/uL (0.0-0.7) Basophils # (Auto) 0.0x10^3/uL (0.0-0.2) Sodium Level 138mmol/L (136-145) 139mmol/L (136-145) Potassium Level 3.9mmol/L (3.5-5.1) 3.2mmol/L (3.5-5.1) Chloride Level 101mmol/L (98-107) 101mmol/L (98-107) Carbon Dioxide Level 24mmol/L (21-32) 26mmol/L (21-32) Anion Gap 13 (6-14) 12 (6-14) Blood Urea Nitrogen 8mg/dL (7-20) 8mg/dL (7-20) Creatinine 0.7mg/dL (0.6-1.0) 0.7mg/dL (0.6-1.0) Estimated GFR (Cockcroft-Gault) 88.6 88.6 Glucose Level 143mg/dL (70-99) 133mg/dL (70-99) Calcium Level 9.1mg/dL (8.5-10.1) 8.7mg/dL (8.5-10.1) Bedside Troponin I 0.04ng/ml (<0.08) Troponin I Quantitative < 0.017ng/mL (0.000-0.055) Laboratory Tests Test 10/28/16 09:45 10/28/16 10:22 White Blood Count 8.5x10^3/uL (4.0-11.0) Red Blood Count 5.47x10^6/uL (3.50-5.40) Hemoglobin 16.0g/dL (12.0-15.5) Hematocrit 47.0% (36.0-47.0) Mean Corpuscular Volume 86fL (79-100) Mean Corpuscular Hemoglobin 29pg (25-35) Mean Corpuscular Hemoglobin Concent 34g/dL (31-37) Red Cell Distribution Width 13.8% (11.5-14.5) Platelet Count 260x10^3/uL (140-400) Neutrophils (%) (Auto) 63% (31-73) Lymphocytes (%) (Auto) 30% (24-48) Monocytes (%) (Auto) 5% (0-9) Eosinophils (%) (Auto) 1% (0-3) Basophils (%) (Auto) 0% (0-3) Neutrophils # (Auto) 5.4x10^3uL (1.8-7.7) Lymphocytes # (Auto) 2.6x10^3/uL (1.0-4.8) Monocytes # (Auto) 0.4x10^3/uL (0.0-1.1) Eosinophils # (Auto) 0.1x10^3/uL (0.0-0.7) Basophils # (Auto) 0.0x10^3/uL (0.0-0.2) Sodium Level 138mmol/L (136-145) 139mmol/L (136-145) Potassium Level 3.9mmol/L (3.5-5.1) 3.2mmol/L (3.5-5.1) Chloride Level 101mmol/L (98-107) 101mmol/L (98-107) Carbon Dioxide Level 24mmol/L (21-32) 26mmol/L (21-32) Anion Gap 13 (6-14) 12 (6-14) Blood Urea Nitrogen 8mg/dL (7-20) 8mg/dL (7-20) Creatinine 0.7mg/dL (0.6-1.0) 0.7mg/dL (0.6-1.0) Estimated GFR (Cockcroft-Gault) 88.6 88.6 Glucose Level 143mg/dL (70-99) 133mg/dL (70-99) Calcium Level 9.1mg/dL (8.5-10.1) 8.7mg/dL (8.5-10.1) Bedside Troponin I 0.04ng/ml (<0.08) Troponin I Quantitative < 0.017ng/mL (0.000-0.055) Assessment/Plan Assessment/Plan 1. Chest pain. Patient reports severe chest pain earlier today. EKG is not consistent with an ST elevated myocardial infarction but does show ST-T wave changes. Patient is less far not responded to treatment. In this setting emergent cardiac catheterization has been recommended. Risks and benefits have been discussed. The patient has agreed to proceed with catheterization. 2. Accelerated hypertension. We will initially treat with IV nitroglycerin pending the results of the heart catheterization. Thank you for allowing us to participate in the care of your patient. BAILEE DEL VALLE MD Oct 28, 2016 16:53
[2016-10-28] MEDS: ASA/APAP/CAFFEINE 250/250/65MG TABLET. PO PRN (17:29)
[2016-10-28] MEDS ORDERED: POTASSIUM CHLORIDE 20 MEQ TABLET.ER. PO ONE (17:30)
[2016-10-28] MEDS: NITROGLYCERIN 0.3MG/HR PATCH. TD SCH (17:30)
[2016-10-29 03:00] VITALS: BP 97/67
[2016-10-29] MEDS: IV NORMAL SALINE 1000ML BAG 1,000 ML IV SCH (03:54)
[2016-10-29 06:43] LABS: BASO % 0 % (0-3); EOS % 2 % (0-3); HEMATOCRIT 41.8 % (36.0-47.0); HEMOGLOBIN 13.7 g/dL (12.0-15.5); LYMPH # 2.1 x10^3/uL (1.0-4.8); LYMPH % 28 % (24-48); MEAN CORPUSCULAR HEMOGLOBIN 29 pg (25-35); MEAN CORPUSCULAR HGB CONC 33 g/dL (31-37); MEAN CORPUSCULAR VOLUME 88 fL (79-100); MONO % 5 % (0-9); NEUT % 65 % (31-73); PLATELET COUNT 228 x10^3/uL (140-400); RED BLOOD COUNT 4.76 x10^6/uL (3.50-5.40); RED CELL DISTRIBUTION WIDTH 13.5 % (11.5-14.5); WHITE BLOOD COUNT 7.4 x10^3/uL (4.0-11.0)
[2016-10-29 07:00] VITALS: BP 103/67
[2016-10-29 07:23] LABS: CHOLESTEROL/HDL RATIO 3.8
[2016-10-29] MEDS ORDERED: ASPIRIN ENTERIC COATED 325 MG TABLET.DR. PO SCH (08:00)
[2016-10-29] MEDS ORDERED: MAGNESIUM SULFATE 2GM 50 ML IV ONE (09:00)
[2016-10-29] MEDS: NITROGLYCERIN 0.3MG/HR PATCH. TD SCH (09:00)
[2016-10-29] MEDS ORDERED: ASPI325T11 PO ×2 (09:07→11:04)
[2016-10-29] MEDS ORDERED: LISI10TA2 PO ×2 (09:07→11:04)
--- NOTE | 2016-10-29 09:08 | PDOC ---
CARDIO Progress Notes Date and Time Date of Service 10/29/2016 Time of Evaluation 1000 Subjective Subjective: No Chest Pain, No shortness of breath, No Palpitations, No Dizziness Vitals Vitals Vital Signs Date Time Temp Pulse Resp B/P Pulse Ox O2 Delivery O2 Flow Rate FiO2 10/29/16 07:00 97.9 63 17 103/67 93 Room Air 97.9 Weight Weight [ ] Input and Output Intake and Output Intake and Output 10/29/16 07:00 Intake Total 2491 ml Output Total 750 ml Balance 1741 ml Intake Oral 20 ml IV Total 1156 ml Other 1315 ml Output Urine Total 750 ml # Voids 1 Laboratory Labs Laboratory Tests Test 10/28/16 09:45 10/28/16 10:22 10/28/16 11:20 10/29/16 06:15 White Blood Count 8.5x10^3/uL (4.0-11.0) 7.4x10^3/uL (4.0-11.0) Red Blood Count 5.47x10^6/uL (3.50-5.40) 4.76x10^6/uL (3.50-5.40) Hemoglobin 16.0g/dL (12.0-15.5) 13.7g/dL (12.0-15.5) Hematocrit 47.0% (36.0-47.0) 41.8% (36.0-47.0) Mean Corpuscular Volume 86fL (79-100) 88fL (79-100) Mean Corpuscular Hemoglobin 29pg (25-35) 29pg (25-35) Mean Corpuscular Hemoglobin Concent 34g/dL (31-37) 33g/dL (31-37) Red Cell Distribution Width 13.8% (11.5-14.5) 13.5% (11.5-14.5) Platelet Count 260x10^3/uL (140-400) 228x10^3/uL (140-400) Neutrophils (%) (Auto) 63% (31-73) 65% (31-73) Lymphocytes (%) (Auto) 30% (24-48) 28% (24-48) Monocytes (%) (Auto) 5% (0-9) 5% (0-9) Eosinophils (%) (Auto) 1% (0-3) 2% (0-3) Basophils (%) (Auto) 0% (0-3) 0% (0-3) Neutrophils # (Auto) 5.4x10^3uL (1.8-7.7) 4.8x10^3uL (1.8-7.7) Lymphocytes # (Auto) 2.6x10^3/uL (1.0-4.8) 2.1x10^3/uL (1.0-4.8) Monocytes # (Auto) 0.4x10^3/uL (0.0-1.1) 0.4x10^3/uL (0.0-1.1) Eosinophils # (Auto) 0.1x10^3/uL (0.0-0.7) 0.1x10^3/uL (0.0-0.7) Basophils # (Auto) 0.0x10^3/uL (0.0-0.2) 0.0x10^3/uL (0.0-0.2) Sodium Level 138mmol/L (136-145) 139mmol/L (136-145) 140mmol/L (136-145) Potassium Level 3.9mmol/L (3.5-5.1) 3.2mmol/L (3.5-5.1) 3.9mmol/L (3.5-5.1) Chloride Level 101mmol/L (98-107) 101mmol/L (98-107) 104mmol/L (98-107) Carbon Dioxide Level 24mmol/L (21-32) 26mmol/L (21-32) 25mmol/L (21-32) Anion Gap 13 (6-14) 12 (6-14) 11 (6-14) Blood Urea Nitrogen 8mg/dL (7-20) 8mg/dL (7-20) 9mg/dL (7-20) Creatinine 0.7mg/dL (0.6-1.0) 0.7mg/dL (0.6-1.0) 0.8mg/dL (0.6-1.0) Estimated GFR (Cockcroft-Gault) 88.6 88.6 75.9 Glucose Level 143mg/dL (70-99) 133mg/dL (70-99) 109mg/dL (70-99) Calcium Level 9.1mg/dL (8.5-10.1) 8.7mg/dL (8.5-10.1) 8.1mg/dL (8.5-10.1) Bedside Troponin I 0.04ng/ml (<0.08) Troponin I Quantitative < 0.017ng/mL (0.000-0.055) 1.202ng/mL (0.000-0.055) Nasal Screen MRSA (PCR) Negative (Negative) Magnesium Level 1.7mg/dL (1.8-2.4) Triglycerides Level 123mg/dL (0-150) Cholesterol Level 221mg/dL (0-200) LDL Cholesterol, Calculated 138mg/dL (0-100) VLDL Cholesterol, Calculated 25mg/dL (0-40) HDL Cholesterol 58mg/dL (40-60) Cholesterol/HDL Ratio 3.8 Physical Exam HEENT: Neck Supple W Full Motion Chest: Symmetric LUNGS: Clear to Auscultation Heart: S1S2, RRR (SR no ectopies), no rubs, no gallops Abdomen: Soft N/T Extremities: No Edema, No Calf Tenderness Neurology: alert, oriented, follow commands Other Exams right groin arteriotomy site intact no erythema or swelling, neurovascular status intact to bilateral LE Assessment Assessment 1. NICM: TTE with EF 45% with WMA. Suspect HTN related. CP possibly from vasopasm 2. S/P C 10/28/2016 with no significant coronary disease. 3. Accelerated HTN: well controlled. 4. HLP 5. Hypomagnesemia: K resolved 6. Possible subclinical hypothyroidism: per PCP 7. Morbid obesity: BMI 39.6 Recommendations 1. New meds. Lipitor 20 mg, Lisinopril 2.5 mg, tropol XL 12.5 mg and Imdur 30 mg po daily 2. Encouraged daily BP monitoring. 3. Continue ASA. DC catapres 4. Weight loss, dietitian to see prior to DC 5. F/U in office in 4 weeks. MINDY GALLO APRN Oct 29, 2016 09:08
--- NOTE | 2016-10-29 09:38 | CARD ---
APPROVED REPORT EXAM: Two-dimensional and M-mode echocardiogram with Doppler and color Doppler. Other Information Quality : GoodHR: 61bpm Rhythm : NSR INDICATION Cardiac Disease: CAD CAD RISK FACTORS Obesity 2D DIMENSIONS RVDd2.9 (2.9-3.5cm)Left Atrium(2D)2.3 (1.6-4.0cm) IVSd0.9 (0.7-1.1cm)Aortic Root(2D)2.7 (2.0-3.7cm) LVDd4.4 (3.9-5.9cm)LVOT Diameter2.0 (1.8-2.4cm) PWd0.9 (0.7-1.1cm)LVDs2.9 (2.5-4.0cm) FS (%) 34.3 %SV54.3 ml LVEF(%)63.6 (>50%) Aortic Valve AoV Peak Ty.120.2cm/sAoV VTI27.2cm AO Peak GR.5.8mmHgLVOT Peak Ty.98.0cm/s AO Mean GR.3mmHgAVA (VMAX)2.49cm2 Mitral Valve MV E Hwapiuav44.3cm/sMV E Peak Gr.3mmHg MV DECEL [id number] A Mawshuhy18.9cm/s MV E Mean Gr.2mmHgE/A Ratio1.2 MV A [id number] Pulmonary Valve PV Peak Fibplwen97.6cm/s Tricuspid Valve TR P. Hfnsudqc643ml/sTR Peak Gr.33mmHg Pulmonary Vein S1 Nzvmbjal72.0cm/sD2 Nspkqfak25.3cm/s PVa [id number] LEFT VENTRICLE The left ventricle is normal size. There is normal left ventricular wall thickness. Left ventricle sy stolic function is mildly decreased. LVEF 45%. There is moderate hypokinesis of the mid to distal ant erior/anterolateral and inferoseptal rosenthal. The apex and the remainder of the LV is within normal chao its. The left ventricular diastolic function and filling is normal for age. No left ventricle thrombu s noted on this study. RIGHT VENTRICLE The right ventricle is normal size. There is normal right ventricular wall thickness. The right ventr icular systolic function is normal. ATRIA The left atrium size is normal. The right atrium size is normal. The interatrial septum is intact wit h no evidence for an atrial septal defect or patent foramen ovale as noted on 2-D or Doppler imaging. AORTIC VALVE The aortic valve is normal in structure and function. Doppler and Color Flow revealed no significant aortic regurgitation. There is no significant aortic valvular stenosis. MITRAL VALVE There is no evidence of mitral valve prolapse. There is no mitral valve stenosis. Doppler and Color F low revealed trace mitral regurgitation. TRICUSPID VALVE Doppler and Color Flow revealed mild tricuspid regurgitation. The pulmonary artery systolic pressure is estimated at 36 mmHg. There is mild pulmonary hypertension. PULMONIC VALVE Doppler and Color Flow revealed trace pulmonic valvular regurgitation. There is no pulmonic valvular stenosis. GREAT VESSELS The aortic root is normal in size. The ascending aorta is normal in size. The IVC is normal in size a nd collapses >50% with inspiration. PERICARDIAL EFFUSION There is no evidence of significant pericardial effusion. Critical Notification Critical Value: No <Conclusion> Left ventricle systolic function is mildly decreased. LVEF 45%. There is moderate hypokinesis of the mid to distal anterior/anterolateral and inferoseptal rosenthal. The apex and the remainder of the LV is within normal limits.
[2016-10-29] MEDS ORDERED: LISINOPRIL 10 MG TABLET PO SCH (10:00)
[2016-10-29] MEDS ORDERED: ASPIRIN CHEWABLE 81 MG TABLET. PO SCH (10:00)
[2016-10-29] MEDS: ASA/APAP/CAFFEINE 250/250/65MG TABLET. PO PRN (10:07)
[2016-10-29 10:22] LABS: ALBUMIN 3.3 g/dL (3.4-5.0); ALBUMIN/GLOBULIN RATIO 1.1 (1.0-1.7); CALCIUM 8.4 mg/dL (8.5-10.1); CREATININE 0.8 mg/dL (0.6-1.0); GFR 75.9; POTASSIUM 3.9 mmol/L (3.5-5.1); TOTAL BILIRUBIN 0.8 mg/dL (0.2-1.0); TOTAL PROTEIN 6.2 g/dL (6.4-8.2)
--- NOTE | 2016-10-29 10:52 | PDOC ---
PROGRESS NOTES Assessment Problems Medical Problems: (1) Chest pressure Status: Acute (2) Hyperkalemia Status: Acute (3) Hyperkalemia Status: Acute (4) STEMI (ST elevation myocardial infarction) Status: Acute (5) STEMI (ST elevation myocardial infarction) Status: Acute Migraine-related visual symptoms, no sign of stroke, all symptoms resolved with Excedrin, and she never developed a headache. Plan Neurology signs off Subjective No complaints Objective Vital Signs Date Time Temp Pulse Resp B/P Pulse Ox O2 Delivery O2 Flow Rate FiO2 10/29/16 07:00 97.9 63 17 103/67 93 Room Air 97.9 Intake and Output 10/29/16 07:00 Intake Total 2491 ml Output Total 750 ml Balance 1741 ml Intake Oral 20 ml IV Total 1156 ml Other 1315 ml Output Urine Total 750 ml # Voids 1 PHYSICAL EXAM Alert. Oriented to time, place and person. PERRL. EOMI. CN: no focal findings. Muscle tone: normal. Muscle strength: 5/5 DTR: 2+ Plantar reflex: flexor Gait: not examined in bed. Sensory exam: no abnormal findings. No cerebellar signs elicited. Review of Relevant I have reviewed the following items danial (where applicable) has been applied. Labs Laboratory Tests Test 10/28/16 09:45 10/28/16 10:22 10/28/16 11:20 10/29/16 06:15 White Blood Count 8.5x10^3/uL (4.0-11.0) 7.4x10^3/uL (4.0-11.0) Red Blood Count 5.47x10^6/uL (3.50-5.40) 4.76x10^6/uL (3.50-5.40) Hemoglobin 16.0g/dL (12.0-15.5) 13.7g/dL (12.0-15.5) Hematocrit 47.0% (36.0-47.0) 41.8% (36.0-47.0) Mean Corpuscular Volume 86fL (79-100) 88fL (79-100) Mean Corpuscular Hemoglobin 29pg (25-35) 29pg (25-35) Mean Corpuscular Hemoglobin Concent 34g/dL (31-37) 33g/dL (31-37) Red Cell Distribution Width 13.8% (11.5-14.5) 13.5% (11.5-14.5) Platelet Count 260x10^3/uL (140-400) 228x10^3/uL (140-400) Neutrophils (%) (Auto) 63% (31-73) 65% (31-73) Lymphocytes (%) (Auto) 30% (24-48) 28% (24-48) Monocytes (%) (Auto) 5% (0-9) 5% (0-9) Eosinophils (%) (Auto) 1% (0-3) 2% (0-3) Basophils (%) (Auto) 0% (0-3) 0% (0-3) Neutrophils # (Auto) 5.4x10^3uL (1.8-7.7) 4.8x10^3uL (1.8-7.7) Lymphocytes # (Auto) 2.6x10^3/uL (1.0-4.8) 2.1x10^3/uL (1.0-4.8) Monocytes # (Auto) 0.4x10^3/uL (0.0-1.1) 0.4x10^3/uL (0.0-1.1) Eosinophils # (Auto) 0.1x10^3/uL (0.0-0.7) 0.1x10^3/uL (0.0-0.7) Basophils # (Auto) 0.0x10^3/uL (0.0-0.2) 0.0x10^3/uL (0.0-0.2) Sodium Level 138mmol/L (136-145) 139mmol/L (136-145) 142mmol/L (136-145) Potassium Level 3.9mmol/L (3.5-5.1) 3.2mmol/L (3.5-5.1) 3.9mmol/L (3.5-5.1) Chloride Level 101mmol/L (98-107) 101mmol/L (98-107) 105mmol/L (98-107) Carbon Dioxide Level 24mmol/L (21-32) 26mmol/L (21-32) 25mmol/L (21-32) Anion Gap 13 (6-14) 12 (6-14) 12 (6-14) Blood Urea Nitrogen 8mg/dL (7-20) 8mg/dL (7-20) 9mg/dL (7-20) Creatinine 0.7mg/dL (0.6-1.0) 0.7mg/dL (0.6-1.0) 0.8mg/dL (0.6-1.0) Estimated GFR (Cockcroft-Gault) 88.6 88.6 75.9 Glucose Level 143mg/dL (70-99) 133mg/dL (70-99) 116mg/dL (70-99) Calcium Level 9.1mg/dL (8.5-10.1) 8.7mg/dL (8.5-10.1) 8.4mg/dL (8.5-10.1) Bedside Troponin I 0.04ng/ml (<0.08) Troponin I Quantitative < 0.017ng/mL (0.000-0.055) 1.202ng/mL (0.000-0.055) Nasal Screen MRSA (PCR) Negative (Negative) BUN/Creatinine Ratio 11 (6-20) Magnesium Level 1.7mg/dL (1.8-2.4) Total Bilirubin 0.8mg/dL (0.2-1.0) Aspartate Amino Transf (AST/SGOT) 29U/L (15-37) Alanine Aminotransferase (ALT/SGPT) 31U/L (14-59) Alkaline Phosphatase 74U/L (46-116) Total Protein 6.2g/dL (6.4-8.2) Albumin 3.3g/dL (3.4-5.0) Albumin/Globulin Ratio 1.1 (1.0-1.7) Triglycerides Level 123mg/dL (0-150) Cholesterol Level 221mg/dL (0-200) LDL Cholesterol, Calculated 138mg/dL (0-100) VLDL Cholesterol, Calculated 25mg/dL (0-40) HDL Cholesterol 58mg/dL (40-60) Cholesterol/HDL Ratio 3.8 Thyroid Stimulating Hormone (TSH) 3.771uIU/mL (0.358-3.74) Laboratory Tests Test 10/28/16 11:20 10/29/16 06:15 Nasal Screen MRSA (PCR) Negative (Negative) White Blood Count 7.4x10^3/uL (4.0-11.0) Red Blood Count 4.76x10^6/uL (3.50-5.40) Hemoglobin 13.7g/dL (12.0-15.5) Hematocrit 41.8% (36.0-47.0) Mean Corpuscular Volume 88fL (79-100) Mean Corpuscular Hemoglobin 29pg (25-35) Mean Corpuscular Hemoglobin Concent 33g/dL (31-37) Red Cell Distribution Width 13.5% (11.5-14.5) Platelet Count 228x10^3/uL (140-400) Neutrophils (%) (Auto) 65% (31-73) Lymphocytes (%) (Auto) 28% (24-48) Monocytes (%) (Auto) 5% (0-9) Eosinophils (%) (Auto) 2% (0-3) Basophils (%) (Auto) 0% (0-3) Neutrophils # (Auto) 4.8x10^3uL (1.8-7.7) Lymphocytes # (Auto) 2.1x10^3/uL (1.0-4.8) Monocytes # (Auto) 0.4x10^3/uL (0.0-1.1) Eosinophils # (Auto) 0.1x10^3/uL (0.0-0.7) Basophils # (Auto) 0.0x10^3/uL (0.0-0.2) Sodium Level 142mmol/L (136-145) Potassium Level 3.9mmol/L (3.5-5.1) Chloride Level 105mmol/L (98-107) Carbon Dioxide Level 25mmol/L (21-32) Anion Gap 12 (6-14) Blood Urea Nitrogen 9mg/dL (7-20) Creatinine 0.8mg/dL (0.6-1.0) Estimated GFR (Cockcroft-Gault) 75.9 BUN/Creatinine Ratio 11 (6-20) Glucose Level 116mg/dL (70-99) Calcium Level 8.4mg/dL (8.5-10.1) Magnesium Level 1.7mg/dL (1.8-2.4) Total Bilirubin 0.8mg/dL (0.2-1.0) Aspartate Amino Transf (AST/SGOT) 29U/L (15-37) Alanine Aminotransferase (ALT/SGPT) 31U/L (14-59) Alkaline Phosphatase 74U/L (46-116) Troponin I Quantitative 1.202ng/mL (0.000-0.055) Total Protein 6.2g/dL (6.4-8.2) Albumin 3.3g/dL (3.4-5.0) Albumin/Globulin Ratio 1.1 (1.0-1.7) Triglycerides Level 123mg/dL (0-150) Cholesterol Level 221mg/dL (0-200) LDL Cholesterol, Calculated 138mg/dL (0-100) VLDL Cholesterol, Calculated 25mg/dL (0-40) HDL Cholesterol 58mg/dL (40-60) Cholesterol/HDL Ratio 3.8 Thyroid Stimulating Hormone (TSH) 3.771uIU/mL (0.358-3.74) Medications Current Medications Aspirin (Children'S Aspirin) 324 mg 1X ONCE PO ; Start 10/28/16 at 09:45; Stop 10/28/16 at 10:32; Status DC Nitroglycerin (Nitrostat) 0.4 mg PRN Q5MIN PRN SL CP RATING > 1/10; Start 10/28 at 09:45; Stop 10/29/16 at 09:44; Status DC Heparin Sodium (Porcine) (Heparin Sodium) 4,000 unit 1X ONCE IV ; Start at 09:45; Stop 10/28/16 at 10:33; Status DC Aspirin ([place] Aspirin) 325 mg STK-MED ONCE .ROUTE ; Start 10/28/16 at 09:55; Stop 10/28/16 at 09:56; Status DC Ondansetron HCl (Zofran) 4 mg STK-MED ONCE .ROUTE ; Start 10/28/16 at 10:03; Stop 10/28/16 at 10:04; Status DC Midazolam HCl (Versed) 2 mg STK-MED ONCE .ROUTE ; Start 10/28/16 at 10:03; Stop 10/28/16 at 10:04; Status DC Fentanyl Citrate 100 mcg 100 mcg STK-MED ONCE .ROUTE ; Start 10/28/16 at 10:03; Stop 10/28/16 at 10:04; Status DC Heparin Sodium/ Sodium Chloride 500 ml @ As Directed STK-MED ONCE .ROUTE ; Start 10/28/16 at 10:10; Stop 10/28/16 at 10:11; Status DC Sodium Bicarbonate 50 meq 1X ONCE IV ; Start 10/28/16 at 10:15; Stop 10/28/16 at 10:32; Status DC Calcium Gluconate (Calcium Gluconate) 1,000 mg 1X ONCE IVP ; Start 10/28/16 at 10:15; Stop 10/28/16 at 10:32; Status DC Albuterol Sulfate (Ventolin Neb Soln) 10 mg 1X ONCE CONT NEB ; Start 10/28/16 at 10:15; Stop 10/28/16 at 10:32; Status DC Insulin Human Regular (Novolin R Vial) 10 unit 1X ONCE IV ; Start 10/28/16 at 10:15; Stop 10/28/16 at 10:32; Status DC Dextrose (Dextrose 50%-Water Syringe) 25 gm 1X ONCE IV ; Start 10/28/16 at 10: 15; Stop 10/28/16 at 10:32; Status DC Ondansetron HCl (Zofran) 4 mg STK-MED ONCE .ROUTE ; Start 10/28/16 at 10:31; Stop 10/28/16 at 10:32; Status DC Heparin Sodium/ Sodium Chloride 1,000 unit 1X ONCE IART Last administered on t 10:58; Start 10/28/16 at 10:45; Stop 10/28/16 at 10:46; Status DC Heparin Sodium/ Sodium Chloride 1,000 unit 1X ONCE IART Last administered on t 10:58; Start 10/28/16 at 10:45; Stop 10/28/16 at 10:46; Status DC Iohexol (Omnipaque 300 Mg/ml) 100 ml 1X ONCE IART Last administered on t 10:56; Start 10/28/16 at 10:45; Stop 10/28/16 at 10:46; Status DC Lidocaine HCl 20 ml 20 ml 1X ONCE IJ Last administered on 10/28/16t 10:58; Start 10/28/16 at 10:45; Stop 10/28/16 at 10:46; Status DC Nitroglycerin/ Dextrose (Nitroglycerin Drip) 250 ml @ As Directed STK-MED ONCE IV ; Start 10/28/16 at 10:37; Stop 10/28/16 at 10:38; Status DC Ondansetron HCl (Zofran) 4 mg 1X ONCE IV Last administered on 10/28/16 10:57 ; Start 10/28/16 at 11:00; Stop 10/28/16 at 11:01; Status DC Sodium Chloride 3 ml 3 ml QSHIFT PRN IV AFTER MEDS AND BLOOD DRAWS; Start 10/28 at 11:15 Sodium Chloride (Iv Sodium Chloride 0.9% 1000ml Bag) 1,000 ml @ 60 mls/hr [id number] IV Last administered on 10/29/16 03:54; Start 10/28/16 at 11:06 Nitroglycerin (Nitrostat) 0.4 mg PRN Q5MIN PRN SL CHEST PAIN; Start 10/28/16 at 11:15 Ondansetron HCl (Zofran) 4 mg PRN Q6HRS PRN IV NAUSEA/VOMITING Last administered on 10/28/16 12:58; Start 10/28/16 at 11:45 Lidocaine HCl 20 ml 20 ml STK-MED ONCE .ROUTE ; Start 10/28/16 at 11:57; Stop at 11:58; Status DC Heparin Sodium/ Sodium Chloride 1,000 ml @ As Directed STK-MED ONCE .ROUTE ; Start 10/28/16 at 11:57; Stop 10/28/16 at 11:58; Status DC Iohexol (Omnipaque 300 Mg/ml) 100 ml STK-MED ONCE .ROUTE ; Start 10/28/16 at 11: 57; Stop 10/28/16 at 11:58; Status DC Acetaminophen (Tylenol) 1,000 mg 1X ONCE PO Last administered on 10/28/16 13: 10; Start 10/28/16 at 13:00; Stop 10/28/16 at 13:02; Status DC Acetaminophen (Tylenol) 650 mg PRN Q6HRS PRN PO HEADACHE; Start 10/28/16 at 13: 00 Acetaminophen (Tylenol) 500 mg PRN Q6HRS PRN PO MILD PAIN / TEMP; Start at 14:15 Alprazolam (Xanax) 0.25 mg PRN Q8HRS PRN PO ANXIETY / AGITATION; Start at 15:15 Acetaminophen/ Aspirin/Caffeine (Excedrin Migraine) 1 tab PRN Q6HRS PRN PO MIGRAINE HEADACHE Last administered on 10/29/16 10:07; Start 10/28/16 at 16:30 Aspirin (Ecotrin) 325 mg DAILYWBKFT PO ; Start 10/29/16 at 08:00; Stop 10/29/16 at 09:10; Status DC Nitroglycerin (Nitro-Dur 0.3mg) 1 patch DAILY TD Last administered on 17:30; Start 10/28/16 at 17:30; Stop 10/29/16 at 10:42; Status DC Enoxaparin Sodium (Lovenox 80mg Syringe) 80 mg 1X ONCE SQ Last administered on 10/28/16 17:29; Start 10/28/16 at 17:30; Stop 10/28/16 at 17:31; Status DC Potassium Chloride 40 meq 40 meq 1X ONCE PO Last administered on 10/28/16 17: 29; Start 10/28/16 at 17:30; Stop 10/28/16 at 17:31; Status DC Magnesium Sulfate/ Dextrose (Magnesium Sulfate PREMIX 2GM) 50 ml @ 25 mls/hr 1X ONCE IV Last administered on 10/29/16 09:26; Start 10/29/16 at 09:00; Stop 10/29/16 at 10:59 Lisinopril (Prinivil) 10 mg DAILY PO ; Start 10/29/16 at 10:00; Stop 10/29/16 at 10:42; Status DC Aspirin (Children'S Aspirin) 81 mg DAILYWBKFT PO Last administered on 09:26; Start 10/29/16 at 10:00 Atorvastatin Calcium (Lipitor) 20 mg QHS PO ; Start 10/29/16 at 21:00 Lisinopril (Prinivil) 2.5 mg DAILY PO ; Start 10/30/16 at 09:00 Metoprolol Succinate (Toprol Xl) 12.5 mg DAILY PO ; Start 10/29/16 at 11:30 Isosorbide Mononitrate (Imdur) 30 mg DAILY PO ; Start 10/29/16 at 11:30 Active Scripts Active Lisinopril 10 Mg Tablet 10 Mg PO DAILY Aspirin Ec (Aspirin) 325 Mg Tablet. 325 Mg PO DAILYWBKFT Reported Indomethacin 50 Mg Capsule 1 Cap PO TID Vitals/I & O Vital Sign - Last 24 Hours 10/28/16 10/28/16 10/28/16 10/28/16 11:30 11:45 12:00 12:15 Temp 97.6 97.6 Pulse 82 76 90 80 Resp B/P 136/74 150/82 136/72 118/67 Pulse Ox 93 97 98 96 O2 Delivery Room Air Room Air Room Air Room Air 10/28/16 10/28/16 10/28/16 10/28/16 12:30 12:45 13:00 13:24 Pulse 76 72 68 72 Resp B/P 122/67 120/75 123/65 116/64 Pulse Ox 96 91 98 93 O2 Delivery Room Air Room Air Room Air Room Air 10/28/16 10/28/16 10/28/16 10/28/16 14:00 14:39 15:06 19:00 Temp 98.3 98.3 Pulse 74 78 78 81 Resp B/P 111/62 107/71 112/62 124/75 Pulse Ox 97 96 96 95 O2 Delivery Room Air Room Air Room Air Room Air 10/28/16 10/29/16 10/29/16 23:00 03:00 07:00 Temp 98.4 98.4 97.9 98.4 98.4 97.9 Pulse 68 68 63 Resp B/P 115/63 97/67 103/67 Pulse Ox 95 95 93 O2 Delivery Room Air Room Air Room Air Intake and Output 10/28/16 10/28/16 10/29/16 15:00 23:00 07:00 Intake Total 20 ml 1831 ml 640 ml Output Total 750 ml Balance -730 ml 1831 ml 640 ml KEIRA BARNARD MD Oct 29, 2016 10:52
[2016-10-29 11:00] VITALS: BP 117/63
[2016-10-29] MEDS ORDERED: ATOR20TA58 PO (11:04)
[2016-10-29] MEDS ORDERED: METO25TA9 PO (11:04)
[2016-10-29] MEDS ORDERED: ISOS30TA4 PO (11:04)
[2016-10-29] MEDS ORDERED: ASPI-482 PO (11:19)
[2016-10-29] MEDS ORDERED: METOPROLOL SUCC 24HR ER 25 MG TAB.ER.24H. PO SCH (11:30)
[2016-10-29] MEDS ORDERED: ISOSORBIDE MONONITRATE ER 30 MG TAB.ER.24H PO SCH (11:30)
[2016-10-29 12:09] VITALS: BP 117/63
--- NOTE | 2016-10-29 12:43 | PDOC3 ---
Discharge Summary [facility] Date of Admission: Oct 28, 2016 Discharge Date: Oct 29, 2016 Admitting Diagnosis 1. CHest pain, non cardiac - clean cath, 2/2 HTN vs anxiety vs GERD likely 2. Possible anxiety 3. Obesity Problems: Final Diagnosis CONSULTS card Brief Hospital Course 51yo F, obesity, on phentemine, comes for chest pain, EKG showed possible STEMI (cannot see EKG MYself) , neg CE, got emergent Cath, neg. echo showed EF 45%, with moderate hypokenetics. dc home with asa, lipitor, lisinopril, toprolol dc phentermine dc time 35min General: Alert, Oriented X3, Cooperative, No acute distress HEENT: Atraumatic, PERRLA, EOMI Lungs: Clear to auscultation, Normal air movement Heart: S1S2, RRR, no rubs, no gallops Cardiovascular: S1, S2 Breasts: Normal Abdomen: Normal bowel sounds, Soft, No tenderness, No hepatosplenomegaly, No masses Extremities: No clubbing, No cyanosis, No edema, Normal pulses, No tenderness/ swelling Skin: No rashes, No breakdown, No significant lesion Neuro: Normal gait, Normal speech, Strength at 5/5 X4 ext, Normal tone, Sensation intact, Cranial nerves 3-12 NL, Reflexes 2+ Psych/Mental Status: Mental status NL, Mood NL Ms. Pierre is a 51 old [sex] who presented with [ ] Patient History: Patient reports no known family medical history. Problems: Disposition home CONDITION AT DISCHARGE: Improved Diet cardiac Scheduled Aspirin (Aspirin Ec) 81 MG PO DAILYWBKFT Aspirin (Aspir 81) 1 TAB PO DAILY (Reported) Atorvastatin Calcium (Atorvastatin Calcium) 20 MG PO QHS Indomethacin (Indomethacin) 1 CAP PO TID (Reported) Isosorbide Mononitrate (Isosorbide Mononitrate Er) 30 MG PO DAILY Lisinopril (Lisinopril) 2.5 MG PO DAILY Metoprolol Succinate (Metoprolol Succinate ( Xl )) 12.5 MG PO DAILY Discontinued Medications Phentermine Hcl (Phentermine Hcl) 1 CAP PO DAILYWBKFT (Reported) Follow Up pcp in 2 weeks KARISSA FELTON MD Oct 29, 2016 12:43
[2016-10-29] MEDS ORDERED: ATORVASTATIN CALCIUM 20 MG TABLET PO SCH (21:00)
[2016-10-30] MEDS ORDERED: LISINOPRIL 2.5 MG TABLET PO SCH (09:00)
== END 2016-10-29 13:45 | disposition home or self-care (01) | DRG 287 ==
LOC: ER 09:29 → 1 WEST ICU 10:18 → 2 NORTH 10-29 07:41
PROVIDERS: ADMIT Internal Medicine; ATTEND Internal Medicine
PROC: 4A023N7 Measurement of Cardiac Sampling and Pressure, Left Heart, Percutaneous Approach (ICD-10-PCS; principal; 2016-10-28)
PROC: B2111ZZ Fluoroscopy of Multiple Coronary Arteries using Low Osmolar Contrast (ICD-10-PCS; 2016-10-28)
PROC: B2151ZZ Fluoroscopy of Left Heart using Low Osmolar Contrast (ICD-10-PCS; 2016-10-28)
PROC: B24BZZZ Ultrasonography of Heart with Aorta (ICD-10-PCS; 2016-10-29)
DX: I10 Essential (primary) hypertension (principal); I42.8 Other cardiomyopathies; E66.01 Morbid (severe) obesity due to excess calories; Z68.39 Body mass index [BMI] 39.0-39.9, adult; E78.5 Hyperlipidemia, unspecified; E83.42 Hypomagnesemia; E87.5 Hyperkalemia; F41.9 Anxiety disorder, unspecified; G43.909 Migraine, unspecified, not intractable, without status migrainosus; K21.9 Gastro-esophageal reflux disease without esophagitis; F32.9 Major depressive disorder, single episode, unspecified; M19.90 Unspecified osteoarthritis, unspecified site; H53.9 Unspecified visual disturbance; Z79.899 Other long term (current) drug therapy; Z79.82 Long term (current) use of aspirin; Z90.89 Acquired absence of other organs; Z90.710 Acquired absence of both cervix and uterus; Z82.49 Family history of ischemic heart disease and other diseases of the circulatory system; W18.39XA Other fall on same level, initial encounter; Y93.89 Activity, other specified; Y92.89 Other specified places as the place of occurrence of the external cause; Y99.8 Other external cause status; R07.9 Chest pain, unspecified
CPT/HCPCS: 36415; 80048; 80053; 80061; 83735; 84443; 84484; 85027; 87641; 93005; 93306; 93458; 93567; C1769; C1771; C1892; G0269; J1650; J2405; J7030; J7060; Q9967; 99285-25